=== PATIENT | female | born 1965 | race Caucasian/White ===

== ENCOUNTER 2019-02-17 10:47 | Outpatient (CLI) | payer BC, OTHER, SELFPAY ==
--- NOTE | 2019-02-17 11:16 | MMO ---
Bilateral MAMMO Bilat Screen [facility]. CLINICAL HISTORY: Patient is 53 years old and is seen for screening. VIEWS: The views performed were: bilateral craniocaudal; bilateral mediolateral oblique; and bilateral Implant displaced with tomosynthesis. MAMMOGRAM FINDINGS: There are scattered fibroglandular densities. There are no suspicious masses, suspicious calcifications, or new areas of architectural distortion. IMPRESSION: THERE IS NO MAMMOGRAPHIC EVIDENCE OF MALIGNANCY. A ROUTINE FOLLOW-UP MAMMOGRAM IN 1 YEAR IS RECOMMENDED. THE RESULTS OF THIS EXAM WERE SENT TO THE PATIENT. ACR BI-RADS Category 1 - Negative MAMMOGRAPHY NOTE: 1. A negative mammogram report should not delay a biopsy if a dominant of clinically suspicious mass is present. 2. Approximately 10% to 15% of breast cancers are not detected by mammography. 3. Adenosis and dense breasts may obscure an underlying neoplasm. Reported by: MINO BURGESS MD Electonically Signed: [id number]
== END 2019-02-17 10:48 | disposition home or self-care (01) ==
LOC: BICMAMMO 10:47
PROVIDERS: ATTEND Family Medicine
DX: Z12.31 Encounter for screening mammogram for malignant neoplasm of breast (principal)
CPT/HCPCS: 77063; 77067

== ENCOUNTER 2020-07-26 19:30 | Inpatient (IN) | payer BC, SELFPAY ==
[2020-07-26] MEDS ORDERED: Morphine 4 MG/ML VIAL ONE (20:48)
[2020-07-26] MEDS ORDERED: Ondansetron PF 4 MG/2 ML Vial ONE ×2 (20:48→23:03)
[2020-07-26] MEDS ORDERED: Dextrose 50% Abboject 50 ML SYRINGE SLOW IVP PRN (22:13)
[2020-07-26] MEDS ORDERED: Morphine 4 MG/ML VIAL SLOW IVP PRN (22:13)
[2020-07-26] MEDS ORDERED: Dextrose 5% in Water 1,000 ML IV PRN (22:13)
[2020-07-26] MEDS ORDERED: hydrALAZINE 20 MG/ML VIAL SLOW IVP PRN (22:13)
[2020-07-26] MEDS: Ondansetron PF 4 MG/2 ML Vial IVP PRN (23:10)
--- NOTE | 2020-07-26 23:20 | HP ---
TRAUMA SURGEON: Sunday Monsalve MD CONSULTING PHYSICIAN: Caroline Martinez M.D., of Neurosurgery. HISTORY OF PRESENT ILLNESS: The patient is a 55-year-old female, who presented to the emergency department from an outside ER. The patient reported she was barrel racing when she was ejected from the horse. She does deny loss of consciousness and she is amnestic to the events. At the time of my evaluation, she complains of a headache and nausea. At the outside facility, the patient received CT scans, which demonstrated small subdural hemorrhages. Chest x-ray was also completed, which was concerning for possible COVID pneumonia. Rapid test was done at that time there, which was negative. The patient reports that her has been sick and was tested positive for COVID in the past two weeks. At the time of my evaluation, the patient denied numbness and tingling in the bilateral upper and lower extremities. She did say she had nausea, but no vomiting. Denied abdominal pain, cough, fever, chest pain, shortness of breath. PAST MEDICAL HISTORY: Hypothyroidism. PAST SURGICAL HISTORY: Hysterectomy, left shoulder surgery, and right wrist surgery. SOCIAL HISTORY: The patient lives at home with her . She runs [email or web address]. She does not use any assistive devices to get around. MEDICATIONS: Levothyroxine. ALLERGIES: NO KNOWN DRUG ALLERGIES. PHYSICAL EXAMINATION: VITAL SIGNS: Temperature 99.1, pulse 62, respirations 18, oxygen saturation 95% on room air, blood pressure 97/72. Primary Survey: Airway intact. Adequate breath sounds bilaterally. 2+ pulses in bilateral radials, femorals, and DPs. GCS 15. Gross motor and sensation intact. No lacerations, bruising, or external bleeding. Secondary Survey: HEAD: Normocephalic and atraumatic. No gross palpable skull deformities or tenderness. EYES: Pupils 3-2, equal, round, reactive to light bilaterally. ENT: No signs of trauma. MUSCULOSKELETAL: C-spine, no step-offs or deformities. No tenderness of the C-spine. The patient does have some left lateral neck tenderness. C-collar not in place. CHEST: Nontender. No crepitus. No abrasions or ecchymosis. Equal chest movement. ABDOMEN: Soft, nontender, nondistended. PELVIS: Stable to palpation. Nontender. RECTAL: Deferred. GENITOURINARY: Deferred. EXTREMITIES: No gross deformities. No abrasions or ecchymosis noted. 2+ pulses in bilateral radials, femorals, DPs. BACK/SPINE: No step-offs, deformities, or tenderness to palpation of the thoracic or lumbar spine. No abrasions or ecchymosis noted. NEUROLOGIC: 5/5 strength in bilateral arcade games mechanic, plantar flexion, dorsiflexion. Gross normal sensation x4 extremities. LABORATORY FINDINGS: White count 8.8, hemoglobin 12.3, hematocrit 33.9, platelets 264. Sodium 140, potassium 3.7, chloride 107, bicarb 30, BUN 14, creatinine 0.80, glucose 114, AST 54, ALT 43, total bilirubin 0.5. DIAGNOSTIC FINDINGS: Chest x-ray demonstrates bibasilar pneumonia. CT scan of the L-spine demonstrates no acute lumbar spine fractures or subluxation. Chronic findings as above. CT scan of the cervical spine demonstrates no acute cervical spine fractures or subluxations. Chronic findings as above. CT scan of the head without contrast demonstrates small acute left parafalcine, tentorial, subdural hemorrhage as above. No midline shift. ASSESSMENT: 1. Status post ejected from horse. 2. Small subdural hemorrhage. 3. History of hypothyroidism. PLAN: The patient will be admitted to the Trauma Service. She will be going to the [facility] with q.1 hour neuro checks. Head of the bed at 30 degrees. Goal systolic blood pressure less than 160. Repeat head CT in the morning. Because patient has findings of possible developing pneumonia on chest x-ray along with exposure within the past two weeks, a repeat COVID test will be done as the previous one was a rapid and is less accurate. In the meantime, we will continue to provide any support if the patient starts to develop pneumonia symptoms. Tomorrow, Physical and Occupational Therapy as well as Speech Language Pathology will work with the patient as well. This patient was discussed with Dr. Monsalve before this dictation. Job ID: [id number]
--- NOTE | 2020-07-27 00:10 | CON ---
DATE OF CONSULTATION: 07/26/2020 CHIEF COMPLAINT: Fall from a horse. HISTORY OF PRESENT ILLNESS: Ms. Martin is a 55-year-old female, who was riding a horse going around barrels and fell. States she lost consciousness for less than 30 minutes. She went to [facility] in [place]. A CT of the head showed a 2 mm left parafalcine subdural hematoma. Also chest x-ray was done indicating a bibasilar pneumonia. The patient was transferred to [facility] due to the subdural hematoma. She is moving all extremities and answering questions appropriately. REVIEW OF SYSTEMS: CONSTITUTIONAL: Denies fever or chills. ENT: Denies change in vision or hearing. CARDIAC: Denies chest pain or diaphoresis. PULMONARY: Reports shortness of breath and cough. Denies hemoptysis. GI: Denies abdominal pain, nausea, vomiting, diarrhea, or change in stool formation and consistency. : Denies trouble with urination, frequency of urination, or bloody urine. SKIN: Denies skin rash, bruising, bleeding, or skin masses. MUSCULOSKELETAL: As per history of present illness. NEUROLOGICAL: As per history of present illness. PSYCHOLOGICAL: Denies anxiety, depression, or behavior changes. MEDICAL HISTORY: Hypothyroidism, history of broken bones in the back. SURGICAL HISTORY: None. FAMILY HISTORY: Unknown. SOCIAL HISTORY: Denies illicit drug use, alcohol use, or nicotine use. MEDICATIONS: Unknown. ALLERGIES: NO KNOWN DRUG ALLERGIES. PHYSICAL EXAMINATION: VITAL SIGNS: BP 132/84, heart rate 88, temperature 99.8, 150 pounds, 67 inches. HEENT: Pupils are equal. Extraocular movements are intact. NECK: Soft, supple. No masses are noted. Range of motion is intact and nonpainful. NEUROLOGIC: Awake, alert, and oriented x3. Memory, attention, and fund of knowledge are normal. Cranial nerves are grossly intact. Upper extremities; 5/5 strength in the deltoids, biceps, triceps, wrist extension, finger extension, and finger intrinsics. Sensation is equal bilaterally. Reflexes are symmetric. Lower extremities; 5/5 bilateral strength in her iliopsoas, quadriceps, hamstrings, anterior tib, EHL, and gastrocnemius. There is no area of dermatomal sensory loss. The reflexes are symmetric. The toes are downgoing. IMAGING DATA: CT of the L-spine, no acute fractures or subluxation. CT of the C-spine, no acute fractures or subluxation. CT of the head, 2 mm left parafalcine subdural hematoma. Chest x-ray, bibasilar pneumonia. ASSESSMENT: 1. Fall. 2. Pneumonia. 3. Subdural hematoma. PLAN: Repeat CT of the brain tomorrow morning. If scan shows improvement or no change, we will transfer care to the Trauma Service. Supportive care. No intracranial surgery at this time. We will have her follow up in 2 to 3 weeks in our clinic and repeat the scan prior to her visit. Job ID: [id number]
[2020-07-27] MEDS ORDERED: Morphine 10 MG/ML VIAL ONE (00:43)
[2020-07-27] MEDS ORDERED: Acetaminophen 500 MG TAB ONE ×2 (00:47→18:20)
[2020-07-27] MEDS: Acetaminophen 500 MG TAB PO SCH ×2 (00:52→18:32)
[2020-07-27] MEDS: Sodium Chloride 0.9% 1,000 ML IV SCH ×2 (00:52→11:10)
[2020-07-27 00:58] LABS: SARS-CoV-2 MS2 Positive; SARS-CoV-2 N Gene Positive; SARS-CoV-2 S Gene Positive; SARS-CoV-2 by NAA DETECTED (NotDetected); SARS-CoV-2 orf1ab Positive
[2020-07-27 04:50] LABS: #Eosinphils 0.1 thou/uL (0.0-0.7); #Lymphocytes 1.7 thou/uL (1.20-3.40); #Monocytes 0.6 thou/uL (0.11-0.59); #Neutrophils 2.9 thou/uL (1.40-6.50); %Basophils 0.4 % (0.0-1.0); %Eosinophils 1.1 % (0.0-10.0); %Lymphocytes 31.9 % (21.0-51.0); %Monocytes 10.9 % (0.0-10.0); %Neutrophils 55.7 % (42.0-75.0); Hemoglobin 11.1 g/dL (12.0-16.0); Mean Corpuscular HGB CONC 33.6 g/dL (32.0-36.0); Mean Corpuscular Hemoglobin 34.1 pg (27.0-31.0); Platelet Count 248 thou/uL (130-400); RBC Distribution Width 11.9 % (11.5-14.5); Red Blood Cell (RBC) Count 3.25 mill/uL (4.20-5.40); White Blood Cell (WBC) Count 5.2 thou/uL (4.8-10.8)
[2020-07-27 05:32] LABS: Anion Gap 14 mmol/L (10-20); BUN (Urea Nitrogen) 15 mg/dL (9.8-20.1); Calc. Creatinine Clearance 0 mL/min (70-130); Calcium 7.7 mg/dL (7.8-10.44); Carbon Dioxide 25 mmol/L (22-29); Chloride 106 mmol/L (98-107); Glucose 97 mg/dL (70-105); Magnesium 1.9 mg/dL (1.6-2.6); Phosphorus 2.9 mg/dL (2.3-4.7); Potassium 3.6 mmol/L (3.5-5.1); Sodium 141 mmol/L (136-145)
--- NOTE | 2020-07-27 08:15 | CT ---
PRELIMINARY REPORT/DIRECT RADIOLOGY/EMERGENCY AFTER HOURS PROCEDURE: EXAM: CT Head Without Intravenous Contrast. CLINICAL HISTORY: F/U SUBDURAL HEMATOMA. PRIOR IMAGES FROM OUTSIDE FACILITY UNAVAILABLE FOR COMPARIS ON. TECHNIQUE: Axial computed tomography images of the head/brain without intravenous contrast. COMPARISON: None provided. FINDINGS: BRAIN: Few subtle areas of noncalcified hyperattenuating thickening along the left margin of the ante rior falx which could represent small foci of subdural blood, but otherwise no significant intra-axial or extra-axial fluid collections. No mass lesion or midline shift. No CT evidence for acu te territorial infarct. VENTRICLES: No hydrocephalus. ORBITS: The orbits are unremarkable. SINUSES AND MASTOIDS: The paranasal sinuses and mastoid air cells are clear. SOFT TISSUES: No significant facial or scalp soft tissue swelling evident. No radiopaque foreign body is seen. BONES: No acute skull fracture. IMPRESSION: 1. Few small areas of mildly hyperattenuating thickening along the left margin of the anterior falx suspicious for trace amounts of subdural blood. No large intraparenchymal hematomas. 2. No other acute or suspicious findings. ELECTRONICALLY SIGNED BY: Mejia Simpson MD Jul 27, 2020 6:19:02 AM [employer] FINAL REPORT CT HEAD NONCONTRAST: DATE: 07/27/2020. TIME: Performed on emergency basis at 0543 hours. HISTORY: Intracranial hematoma. Followup. COMPAR[facility]: [facility]. FINDINGS: Findings agree with the preliminary report by Dr. Simpson from direct radiology. Subtle hyperdense thicke brice along the left side of the anterior falx may represent a very small subdural hematoma component. No new abnormalities are demonstrated. Transcribed Date/Time: 07/27/2020 8:15 AM
--- NOTE | 2020-07-27 08:22 | PRG ---
DATE OF SERVICE: 07/27/2020 Dominick Carrizales PA-C of our Neurosurgery Service evaluated Angela Martin yesterday. She was transferred from another emergency department in town (one not attached to hospital) because of concern for hyperdensity along the falx after Ms. Martin was thrown from a horse. Both on admission and overnight, her neurological examination has been normal. I reviewed imaging. She has prominent increased density of the falx anteriorly, especially on the left side measuring 1 or 2 mm and I do not believe this represents blood. A followup scan this morning is done and no different from yesterday. She has old transverse process fractures on the left in the lumbar spine consistent with being thrown from a horse previously or other trauma. I will plan neurosurgical intervention for Ms. Martin nor any followup. She can be discharged at any time. Job ID: [id number]
[2020-07-27] MEDS ORDERED: Famotidine/PF 20 mg/2ml Vial SLOW IVP SCH (09:00)
[2020-07-27] MEDS ORDERED: Scopolamine 1.5 mg/72 hour Patch TD SCH (09:00)
[2020-07-27] MEDS ORDERED: Morphine 4 MG/ML VIAL ONE (10:52)
[2020-07-27] MEDS ORDERED: Famotidine/PF 20 mg/2ml Vial ONE (10:52)
[2020-07-27] MEDS ORDERED: Ondansetron PF 4 MG/2 ML Vial ONE (10:52)
[2020-07-27] MEDS: Ondansetron PF 4 MG/2 ML Vial IVP PRN (11:10)
[2020-07-27] MEDS ORDERED: traMADol HCl 50 MG TAB PO PRN (18:48)
[2020-07-27] MEDS ORDERED: Doxycycline 100 MG CAP PO SCH (21:00)
--- NOTE | 2020-07-30 19:17 | DIS ---
DATE OF ADMISSION: 07/26/2020 DATE OF DISCHARGE: 07/27/2020 This is Sandee Olson NP dictating a report for Sunday Monsalve MD. CONSULTS: Neurosurgery, Dr. Martinez. PROCEDURES: None. PRIMARY DIAGNOSES: Status post ejection from horse, small subdural hemorrhage; pneumonia, COVID-19 positive. SECONDARY DIAGNOSIS: Hypothyroidism. DISCHARGE MEDICATIONS: 1. Scopolamine patch 1.5 mg transdermal q.3 days #3 no refills. 2. Tramadol 50 mg p.o. q.6 hours p.r.n. pain, #30, no refills. 3. Doxycycline 100 mg p.o. b.i.d. for 10 days, #20, no refills. 4. Acetaminophen 1000 mg p.o. q.6 hours. 5. No discontinued medications. HISTORY OF PRESENT ILLNESS AND HOSPITAL COURSE: This is a 55-year-old female who presented to the emergency room after a transfer from physician to ER. The patient was ejected from a horse. The patient denies loss of consciousness. The patient complained of headache and nausea. CAT scans were obtained from outside facility. They demonstrated a small subdural hemorrhage. A chest x-ray was also completed, which was concerning for possible COVID pneumonia. A rapid COVID test was done at that time which was negative. The patient's was recently sick and tested positive for COVID-19 in the past 2 weeks. The patient was tested again for COVID with a PCR which was positive. The patient denied any shortness of breath. The patient was not requiring any oxygen. The patient did have some dizziness when she moved her neck. The patient had a repeat scan the next morning that was stable. The patient's neurologic exam was unchanged and patient's GCS remained [address] during her hospital stay. CT scan was reviewed by Dr. Martinez. The patient was cleared by Neurosurgery. No surgical intervention or followups are required per Neurosurgery. The patient was evaluated by Speech for cognition and Physical and Occupational Therapy. The patient was able to ambulate without any difficulties. The patient's dizziness did improve with a scopolamine patch. The patient continued to have a mild headache. On the day of discharge, her exam was unremarkable including cardiopulmonary and GI exam. The patient's vital signs were stable. The patient was deemed stable for discharge home with her . The patient is to be with someone 15/02 until symptoms have resolved. DISPOSITION: Stable. DISCHARGE INSTRUCTIONS: 1. Location: Home. 2. Diet: Regular diet as tolerated. 3. Activity: As tolerated, the patient should rest as much as possible for healing over the next 1-2 weeks as long as she is having symptoms of dizziness or nausea. 4. Followup: No followup needed with Trauma Services. Please call for questions. No followup needed with Neurosurgery. The patient is to quarantine for 7 days. 5. The [place] prescription monitoring program was accessed and appropriate. This is just a summary of the patient's hospital visit, please see the entire medical record for details. Job ID: [id number]
== END 2020-07-27 19:40 | disposition home or self-care (01) | DRG 85 ==
LOC: ERS 19:30 → ERHOLD 22:13
PROVIDERS: ADMIT Surgery; ATTEND Surgery
DX: S06.5X1A Traumatic subdural hemorrhage with loss of consciousness of 30 minutes or less, initial encounter (principal); U07.1 COVID-19; J12.82 Pneumonia due to coronavirus disease 2019; V80.010A Animal-rider injured by fall from or being thrown from horse in noncollision accident, initial encounter; M81.0 Age-related osteoporosis without current pathological fracture; E03.9 Hypothyroidism, unspecified; R40.2362 Coma scale, best motor response, obeys commands, at arrival to emergency department; R40.2132 Coma scale, eyes open, to sound, at arrival to emergency department; R40.2252 Coma scale, best verbal response, oriented, at arrival to emergency department; Z79.899 Other long term (current) drug therapy; Z90.710 Acquired absence of both cervix and uterus
CPT/HCPCS: 36415; 70450; 80048; 83735; 84100; 85025; 87635; 96374; 96375; G0390; J2270; J2405; J7030; S0028; U0003